=== PATIENT | female | born 1940 | race Caucasian/White ===

== ENCOUNTER 2016-12-16 14:58 | Inpatient (IN) | payer OTHER ==
[~2016-12-16] VITALS: Ht 167.6 cm; Wt 60.5 kg
[~2016-12-16 14:58] MED LIST: COLACE100 MG PO; COMBIGAN O20 DROP/5 BOTH EYES; CYANOCOBAL1000 MCG/2 IM; DUONEB 2.5-0.5 M3 ML AEROSOL; ELIQUIS5 MG PO; HYDROCHLOROTHIA25 MG PO; I-CAPS AREDS S1 EACH PO; ICAPS TABLET1 EACH PO; LATANOPROST2.5 ML BOTH EYES; LOPRESSOR25 MG PO; NORVASC5 MG PO; SENNA PLUS TAB1 EACH PO; SINGULAIR10 MG PO; TRAMADOL HCL50 MG PO; TYLENOL REGULA325 MG PO; ULTRAM50 MG PO; VENTOLIN HFA18 GM IH; XALATAN2.5 ML BOTH EYES
[2016-12-16 15:30] LABS: BASOPHIL COUNT 0.1 K/uL (0-0.1); EOSINOPHIL (%) 1.9 % (0-5); EOSINOPHIL COUNT 0.2 K/uL (0-0.3); HEMATOCRIT 29.2 % (36.0-46.0); IMMATURE GRANULOCYTE (%) 0.3 % (0.0-0.7); INSTRUMENT ABS NEUTROPHIL CT 6.8 K/uL; LYMPHOCYTE COUNT 1.9 K/uL (1.0-2.8); MCH 29.3 PG (29.0-34.0); MCHC 31.2 G/DL (30.0-36.0); MCV 93.9 FL (83-99); MEAN PLAT.VOLUME 9.9 uM^3 (9.5-12.4); MONOCYTE (%) 8.8 % (3-12); MONOCYTE COUNT 0.9 K/uL (0-0.8); NEUTROPHIL (%) 69.6 % (45-76); NEUTROPHIL COUNT 6.8 K/uL (1.8-6.4); RBC DIS.WIDTH-CV 12.3 % (11.8-14.6); RBC DIS.WIDTH-SD 42.5 % (39-53); RED BLOOD COUNT 3.11 M/uL (3.80-5.20); WHITE BLOOD COUNT 9.8 K/uL (4.1-10.2)
[2016-12-16 15:36] LABS: INTER. NORMALIZED RATIO 1.7; PROTHROMBIN TIME 19.4 SEC (10.2-12.9)
[2016-12-16 15:39] LABS: PTT 36.4 SEC (25-37)
[2016-12-16 15:42] LABS: PLATELET COUNT 217 K/uL (156-360)
[2016-12-16 15:55] LABS: CHLORIDE 102 mEq/L (99-109); POTASSIUM 4.1 mEq/L (3.7-5.4); SODIUM 138 mEq/L (136-147)
[2016-12-16 15:57] LABS: GLUCOSE 87 mg/dL (70-99)
[2016-12-16 15:59] LABS: ANION GAP 13 MEQ/L (2-14)
[2016-12-16 16:01] LABS: GFR ESTIMATE (CALCULATED) 26 mL/min/
[2016-12-16 16:02] LABS: UREA NITROGEN (BUN) 49 mg/dL (9-23)
[2016-12-16 16:10] LABS: TROP-I INTERPRETATION NEGATIVE; TROPONIN-I < 0.01 ng/mL (0.0-0.30)
[2016-12-16] MEDS ORDERED: ZOFRAN4 MG PO (16:33)
[2016-12-16 20:39] VITALS: BP 182/76
[2016-12-17 00:10] VITALS: BP 135/63
[2016-12-17 03:44] VITALS: BP 127/71
[2016-12-17 07:21] VITALS: BP 136/69
[2016-12-17 11:25] VITALS: BP 136/62
[2016-12-17 15:39] VITALS: BP 126/67
[2016-12-17 19:33] VITALS: BP 131/65
[2016-12-18 00:05] VITALS: BP 127/63
[2016-12-18 04:00] VITALS: BP 121/59
[2016-12-18 06:41] LABS: HEMATOCRIT 26.6 % (36.0-46.0); MCH 29.5 PG (29.0-34.0); MCHC 32.7 G/DL (30.0-36.0); MCV 90.2 FL (83-99); MEAN PLAT.VOLUME 10.8 uM^3 (9.5-12.4); PLATELET COUNT 197 K/uL (156-360); RBC DIS.WIDTH-CV 12.5 % (11.8-14.6); RBC DIS.WIDTH-SD 40.6 % (39-53); RED BLOOD COUNT 2.95 M/uL (3.80-5.20); WHITE BLOOD COUNT 14.6 K/uL (4.1-10.2)
[2016-12-18 07:04] LABS: ANION GAP 14 MEQ/L (2-14); CHLORIDE 98 MEQ/L (99-109); GFR ESTIMATE (CALCULATED) 24 mL/min/; POTASSIUM 3.9 MEQ/L (3.7-5.4); SAMPLE HEMOLYSIS CHECK 0; SAMPLE ICTERIC CHECK 0; SAMPLE LIPEMIA CHECK 0; SODIUM 137 MEQ/L (136-147); UREA NITROGEN (BUN) 70 mg/dL (9-23)
[2016-12-18 07:08] LABS: GLUCOSE 119 mg/dL (70-99)
[2016-12-18 07:48] VITALS: BP 129/67
[2016-12-18 11:50] VITALS: BP 128/92
[2016-12-18 15:41] VITALS: BP 130/63
[2016-12-19 00:29] VITALS: BP 121/56
[2016-12-19 04:26] VITALS: BP 118/58
[2016-12-19 07:42] VITALS: BP 144/66
[2016-12-19 11:30] VITALS: BP 123/60
[2016-12-19 12:18] LABS: POINT-OF-CARE METER ID UU14162508
[2016-12-19 16:13] VITALS: BP 143/67
[2016-12-19 19:54] VITALS: BP 131/60
[2016-12-20 00:09] VITALS: BP 122/60
[2016-12-20 04:13] VITALS: BP 125/68
[2016-12-20 07:47] VITALS: BP 143/63
== END 2016-12-20 14:20 | DRG 192 ==
LOC: EME 14:58 → EDOF 16:45 → 2EAST 16:45 → ENRESERV 17:45 → 2EAST 19:45
PROVIDERS: Emergency Medicine; Internal Medicine; Internal Medicine Pulmonary Disease
DX: J44.1 Chronic obstructive pulmonary disease with (acute) exacerbation (principal); J44.0 Chronic obstructive pulmonary disease with (acute) lower respiratory infection; J20.9 Acute bronchitis, unspecified; K52.9 Noninfective gastroenteritis and colitis, unspecified; N28.9 Disorder of kidney and ureter, unspecified; I48.2 Chronic atrial fibrillation; I10 Essential (primary) hypertension; K21.9 Gastro-esophageal reflux disease without esophagitis; I25.10 Atherosclerotic heart disease of native coronary artery without angina pectoris; Z88.6 Allergy status to analgesic agent; Z95.0 Presence of cardiac pacemaker; Z79.01 Long term (current) use of anticoagulants; Z87.891 Personal history of nicotine dependence
CPT/HCPCS: 71010; 80048; 82948; 83880; 84484; 85025; 85027; 85610; 85730; 93005; 94640; 94640 76; 94760; 94799; 99202; 99281; 99285; J0692; J2930; J7050; J7512